=== PATIENT | male | born 1990 | race Two or more races ===

== ENCOUNTER → 2017-06-24 | Outpatient (CLI) | payer OTHER | LOC: CIMAGING 08:50 | PROVIDERS: ATTEND Family Medicine | DX: R10.9 Unspecified abdominal pain (principal); M54.2 Cervicalgia; M62.830 Muscle spasm of back; Z87.442 Personal history of urinary calculi | CPT/HCPCS: 72040-PO; 74018-PO ==

== ENCOUNTER → 2017-12-09 | Outpatient (CLI) | payer OTHER | LOC: CIMAGING 10:41 | PROVIDERS: ATTEND Family Medicine | DX: R10.31 Right lower quadrant pain (principal); Z87.442 Personal history of urinary calculi | CPT/HCPCS: 74019-PO ==

== ENCOUNTER → 2018-02-11 | Outpatient (CLI) | payer OTHER | LOC: FIMAGING 16:37 | PROVIDERS: ATTEND Family Medicine | DX: R22.41 Localized swelling, mass and lump, right lower limb (principal) ==

== ENCOUNTER 2018-03-01 12:43 | Emergency (ER) | payer OTHER ==
--- NOTE | 2018-03-01 13:47 | EDPHY ---
H & P Time Seen by Provider: 03/01/18 13:27 HPI/ROS: Clinical Impression: Left hand laceration Assessment/Plan: 27-year-old male presents to the emergency department the laceration on the left MCP joint sustained on and H VAC equipment just prior to arrival. Full range of motion of the hand, no evidence of extensor tendon injury, distal neurovascular exam intact. Tetanus up-to-date. Wound anesthetized and cleaned as per chart notes. Repaired as below. Encouraged workmen Comp follow-up. Signs and symptoms of infection discussed, warning signs returned etiology discharge. Differential Dx: includes but not limited to laceration of tendon or vascular structure, underlying fracture, laceration with retained FB ED PROCEDURES: Laceration Repair Verbal consent obtained by patient. Risks discussed, including but not limited to infection, pain, retained foreign body, need for additional repair, poor cosmetic result, tendon damage, nerve damage, poor wound healing, vascular damage. Alternatives to repair discussed. [facility] protocol used to establish correct patient, procedure, equipment, direct support professional, and site. Anesthesia obtained by local infiltration with 1% lidocaine. Anesthetized with 1% lidocaine. Laceration location right 3rd dorsal MCP, length 0.5 cm, depth 2 mm, Repair type simple. Patient was prepped and draped in usual sterile fashion. Hemostasis achieved with direct pressure. Wound explored through full range of motion and entire depth of wound probed and visualized with gloved finger. No suspicion for nerve damage, tendon damage, underlying fracture, vascular damage, foreign body, or contamination. Area was cleansed with Shur-Clens and irrigated with sterile saline as per protocol. No foreign body or material removed. Repair method 4 0 Prolene. Two sutures. Well aligned, closely approximated. wound was dressed with bacitracin and Band-Aid. Patient tolerated well with no immediate complications. Wound care: Clean and dry x 24 hours, gently clean with soap and water, cover with topical antibiotic ointment/bandage. Suture/Staple removal: 7-10 Days Chief Complaint: Laceration HPI: 27-year-old male presents to the emergency department with an acute laceration to the left 3rd MCP joint sustained on an H VAC devices prior to arrival. Patient has full range of motion of the hand and fingers. No sensory deficits. Tetanus is up-to-date. He also has a small subungual hematoma to the left thumb that is not bothering him. PMH: None reported Pertinent Past Surgical History: Not pertinent Social History: Nursing Care Attendant, vaccines up-to-date ROS: All other systems negative Constitutional: No fever, no chills Musculoskeletal: No deformity, no joint pain Skin: Laceration Neurological: No sensory loss or weakness, 2 point discrimination intact. Physical Exam: General Appearance: Alert, oriented, appropriate for age, cooperative, NAD, well hydrated, non-toxic appearing, VSS, no hypoxia. Neurological: Alert and oriented x 3 Skin: 0.5 cm laceration to the dorsal left MCP joint. Full range of motion of the hand and finger, no concern for extensor tendon injury. Musculoskeletal: Full range of motion, distal neurovascular exam intact, no evidence for foreign body or extensor tendon injury MDM: Patient was seen independently by established practice protocols. Secondary supervising physician at time of evaluation was Dr. Ladd. Diagnosis: Left hand laceration. New, requires workup Summary: See assessment and plan for summary of ED visit Risk of comlications, morbidity, mortality Presenting problem low Diagnostic procedures low Management Options low Patient Progress stable. ] Smoking Status: Never smoked Constitutional: Initial Vital Signs Temperature (C) 37.3 C 03/01/18 12:45 Heart Rate 71 03/01/18 12:45 Respiratory Rate 17 03/01/18 12:45 Blood Pressure 143/89 H 03/01/18 12:45 O2 Sat (%) 97 03/01/18 12:45 O2 Delivery Mode Room Air Allergies/Adverse Reactions: No Known Allergies Allergy (Verified 03/01/18 12:44) Home Medications: Medication Instructions Recorded NK [No Known Home Meds] 03/01/18 MDM/Departure - Depart Disposition: Home, Routine, Self-Care Clinical Impression: Laceration of hand Qualifiers: Encounter type: initial encounter Foreign body presence: without foreign body Laterality: left Qualified Code(s): S61.412A - Laceration without foreign body of left hand, initial encounter Condition: Good Instructions: Laceration (ED) Additional Instructions: Please have sutures/shauna removed in 7-10 Days. You can return to the emergency department or your primary care for suture/staple removal. Avoid submerging sutures/shauna underwater for prolonged period of time until removed. Keep wound clean and dry, cover with antibiotic ointment and Band-Aid. Return to emergency department for redness, swelling, discharge, warmth to the skin, or any other concerns for infection. Referrals: Antonio Boyd DO [Primary Care Provider] - As per Instructions
[2018-03-01 14:38] VITALS: BP 138/82
== END 2018-03-01 14:38 | disposition home or self-care (01) ==
PROC: 0HQGXZZ Repair Left Hand Skin, External Approach (ICD-10-PCS; principal; 2018-03-01)
DX: S61.412A Laceration without foreign body of left hand, initial encounter (principal); W26.8XXA Contact with other sharp object(s), not elsewhere classified, initial encounter